=== PATIENT | female | born 1955 | race Caucasian/White ===

== ENCOUNTER 2018-03-20 07:51 | Observation (INO) ==
[~2018-03-20 07:51] MED LIST: Lidocaine 1%/Epinephrine 1:100,000 Inj 30 ML Vial ONE
[2018-03-20] MEDS ORDERED: Metoprolol Tartrate 25 MG Tablet PO SCH (10:30)
[2018-03-20] MEDS ORDERED: Chlorhexidine Gluconate 2% 1 Pack (2 Cloths) TOPICAL SCH (10:30)
[2018-03-20] MEDS ORDERED: Ampicillin/Sulbactam Inj 3 GM in Sodium Chloride 0.9% Inj 100 ML IV.SIG SCH (11:00)
[2018-03-20] MEDS ORDERED: Sodium Chlor 0.9% Inj 500 ML IV.SIG SCH (11:00)
[2018-03-20] MEDS ORDERED: fentaNYL Citrate Inj 100 MCG/2 ML Ampul ONE (12:50)
[2018-03-20] MEDS ORDERED: HYDROmorphone PF Inj 1 MG/ML Ampul ONE ×2 (12:55→13:58)
[2018-03-20] MEDS ORDERED: Ampicillin/Sulbactam Inj 1,500 MG IV.SIG SCH ×2 (15:00)
[2018-03-20] MEDS: Ampicillin/Sulbactam Inj 1,500 MG IV.SIG SCH ×2 (20:55)
[2018-03-21] MEDS: Ampicillin/Sulbactam Inj 1,500 MG IV.SIG SCH ×4 (02:00→03:05)
[2018-03-21] MEDS ORDERED: Lidocaine PF 1% Inj 5 ML Syringe INFILTRATN ONE (12:00)
[2018-03-21] MEDS ORDERED: Succinylcholine Inj 100 MG/5 ML Syringe IV.PUSH ONE (12:00)
--- NOTE | 2018-04-05 16:14 | MP ---
cc: Toy Ruffin MD DATE OF OPERATION: 03/20/2018 DATE OF SURGERY: 03/20/2018 SURGEON: Toy Ruffin MD PREOPERATIVE DIAGNOSES: 1. Nasal airway obstruction. 2. Nasal septal deviation. 3. Chronic pansinusitis. POSTOPERATIVE DIAGNOSES: 1. Nasal airway obstruction. 2. Nasal septal deviation. 3. Chronic pansinusitis. OPERATION PERFORMED: 1. Open repair of nasal septal fracture. 2. Bilateral submucosal resection of inferior turbinates. 3. Bilateral endoscopic total ethmoidectomy. 4. Bilateral endoscopic maxillary antrostomies with removal of maxillary sinus tissue. 5. Bilateral endoscopic exploration of frontal sinus ducts. 6. Bilateral endoscopic sphenoidotomy with removal of sphenoid sinus tissue. INDICATION FOR PROCEDURE: The indications are documented in the history and physical. DESCRIPTION OF PROCEDURE: The patient was taken to OR #2 and placed in the supine position. Following induction of general anesthesia and intubation, the nose was packed bilaterally with cotton pledgets saturated in 0.05% oxymetazoline. The septal mucosa and inferior turbinates were injected with a total of 8 mL 1% Xylocaine with epinephrine 1:100,000. She was then prepped and draped for surgery, the packing was removed and a hemitransfixion incision was made in the left nasal vestibule. Through this incision, the septal mucosa was elevated bilaterally as far as the junction of the bony and cartilaginous septum. This exposed an end-on view of the quadrangular cartilage, which showed evidence of old fracture with comminuted fragments extending into the airway bilaterally, left much greater than right. A cumulative area of 2 x 2 cm was removed, preserving 1.5 cm dorsal and caudal cartilaginous struts. Next, the mucosa was elevated from the bony septum and the maxillary crest and these were removed using Deuce-Aftab forceps. This was carried back as far as the sphenoid rostrum and the rostrum of the sphenoid was taken off, also using the Eustis-Ugalde forceps. The incision was then closed with a running suture of 4-0 chromic and the mucosal layers of septum were approximated to each other with a quilting stitch of 4-0 plain gut. The inferior turbinates were addressed next and they were fractured out medially and stab incisions made along their inferior surfaces. Through these incisions, the submucosal soft tissue was reduced using a curette and preserving the conchal bone. The incisions were then cauterized using the suction Bovie at 35 saucedo and the remnants of the inferior turbinates were then lateralized to the lateral nasal wall. From this point forward, the operation was done using a Storz 0-degree fiberoptic scope. Additional injections of lidocaine and epinephrine were made into the attachments of the middle turbinates, the uncinate processes and the ethmoid cells. The left side was addressed first beginning with amputation of the middle turbinate using Thru-Cutting Blakesley forceps and the powered microdebrider. This was carried back to the horizontal attachment of the middle turbinate. Next, the uncinectomy was completed using a sickle knife, which exposed the ethmoid bulla. The bulla was bluntly penetrated and bone and soft tissue fragments were removed from the anterior cells using blunt and power dissection. This was carried back to the basal lamella of the middle turbinate, which was then removed using the powered debrider in a medial to lateral fashion, which exposed the posterior ethmoid cells. These were removed in an identical manner, preserving the superior turbinate and this was carried back as far as the rostrum of the sphenoid. All the bone fragments and middle turbinate from this side were included in the specimen labeled "left sinus contents." When this was completed, the maxillary sinus was addressed. The ostium was probed, using a 3 mm olive tip suction and then enlarged with Stammberger forceps and the power microdebrider. The cavity was debrided of inflamed tissue and mucopurulent material. Lastly, on the left side, the sphenoid ostium was probed, using a #10 suction and then enlarged with the microdebrider and the cavity was debrided using Blakesley forceps and the 0-degree scope. The left side was then irrigated with iced saline and packed with cotton pledgets saturated in oxymetazoline, and these remained in place while the right sinuses were operated in the same fashion, beginning with the amputation of the middle turbinate, which on this side included a large yanci bullosa. This was followed by uncinectomy, exenteration of anterior and posterior cells and enlargement of the maxillary and sphenoid ostia and debridement of the maxillary and sphenoid cavities. All the material and bone from this side was included in the specimen labeled "right sinus contents". This side was also irrigated with iced saline and packed with cotton pledgets. The pledgets remained in place while the frontal ducts were dilated using the Acclarent balloon technique. The guidewire was advanced into the frontal sinus and then the balloon over the wire. It was inflated superiorly at the midpoint and inferiorly in the frontal duct. It was then removed and the duct was verified patent all the way into the frontal sinus. The right frontal was then operated on in the same fashion. At this point, all packing was removed and was replaced into the sphenoid, maxillary and ethmoid cells with Stammberger sinus foam. The inferior of the nasal vault was filled with Merocel tampons coated in bacitracin ointment and the procedure was terminated. The patient was reversed from anesthesia and taken to recovery in good condition. There were no complications. Blood loss 200 mL. MD ADEEL Reeves/ZULEIKA , 03:48 PM , 04:01 PM
== END 2018-03-21 08:58 | disposition home or self-care (01) ==
LOC: PHSDC 07:51 → HSDI 07:51 → PH3 07:51 → EDSTATUS 08:45 → PH3 14:30
PROVIDERS: ADMIT Otolaryngology; ATTEND Otolaryngology